=== PATIENT | female | born 1990 | race Caucasian/White ===

== ENCOUNTER 2019-12-31 07:20 | Outpatient (CLI) | payer BC, SELFPAY ==
--- NOTE | 2019-12-31 08:00 | FL_ITS ---
WS: [id number] HYSTEROGRAM PERFORMED UNDER FLUOROSCOPY HISTORY: N97.9 Female infertility, unspecified. FLUOROSCOPY TIME: .3 minutes. Cannulization of the cervix performed by Dr. Linder. Normal filling of the endometrial cavity. Rapid spillage from the RIGHT fallopian tube. More delayed spillage from the LEFT fallopian tube but it did spill. FL/FL hysterosalpingography [id number] IMPRESSION: Fallopian tubes are patent bilaterally.
[2019-12-31] MEDS: iohexol 300 mg/mL 50 mL Btl VAGINAL (08:20)
--- NOTE | 2019-12-31 09:06 | PM.ACPR ---
Procedure/Consent Procedure Narrative: RADIOLOGIC PROCEDURE DATE OF PROCEDURE: 12/31/2019 DATE OF DICTATION: 12/31/2019 TIME OF DICTATION: 09: 05 PROCEDURAL DIAGNOSIS: Female infertility PROCEDURE: Placement of hysterosalpingogram catheter PHYSICIAN: Saji Linder M.D. ANESTHESIA: None INDICATIONS: Patient is a 29-year-old female being evaluated for infertility. Presenting for HSG today. PROCEDURE: The procedure was explained to the patient and verbal consent provided. Sterile speculum was placed in the vagina and the cervix was prepped with Betadine. The cervix was grasped with a single-tooth tenaculum. Using Omnipaque dye, the HSG catheter was primed. The catheter was inserted into the cervix. The speculum was removed. Fluoroscopy was performed by the radiologist. Omnipaque dye was injected into the endometrial cavity with normal filling of the cavity. Free spillage of dye noted from both tubes. The tenaculum and catheter were removed. Patient tolerated the procedure well. Please see separate radiologist's report for final interpretation. FOLLOWUP APPOINTMENT: She is to followup at her next scheduled appointment.
== END 2019-12-31 07:21 | disposition home or self-care (01) ==
LOC: RAD 07:23
PROVIDERS: Family Provider Family Medicine; PCP Family Medicine; Visit Provider Obstetrics & Gynecology
DX: N97.9 Female infertility, unspecified (principal)
CPT/HCPCS: 12345; 74740

== ENCOUNTER 2021-05-21 17:04 | Outpatient (CLI) | payer BC, SELFPAY ==
[2021-05-25 12:36] LABS: Insulin ( Reference Lab Test) 8.1 uIU/mL
== END 2021-05-21 17:05 | disposition home or self-care (01) ==
LOC: LAB 17:08
PROVIDERS: PCP Family Medicine; Visit Provider Obstetrics & Gynecology
DX: Z01.419 Encounter for gynecological examination (general) (routine) without abnormal findings (principal)
CPT/HCPCS: 36415; 83525; 88175

== ENCOUNTER 2021-08-26 14:25 | Outpatient (CLI) | payer OTHER, SELFPAY ==
[2021-08-26 15:21] LABS: Urine Appearance Cloudy (CLEAR)
[2021-08-26 15:22] LABS: Bilirubin Urine 2+ (Negative); Blood Urine 3+ (Negative); Glucose Urine UA Norm (Normal); Ketones Urine Negative (Negative); Nitrate Urine Positive (Negative); Protein Urine 3+ (Negative); Specific Gravity, Urine 1.005 (1.005-1.030); pH Urine 7 (5-7)
[2021-08-26 15:23] LABS: Urobilinogen Urine 4 mg/dL (Negative)
[2021-08-26 15:24] LABS: Add Urine Microscopic? YES; Leukocyte Esterase Urine Negative (Negative)
[2021-08-26 15:25] LABS: Urine Color Orange (Yellow)
[2021-08-26 15:35] LABS: Add Urine Culture? Yes; Bacteria Urine 2+ /hpf; RBC Urine TOO NUMEROUS TO CNT /hpf (0-2); Squamous Epithelial Cell Urine 0-4 /hpf (0-5); WBC Urine 25-40 /hpf (0-5)
== END 2021-08-26 14:26 | disposition home or self-care (01) ==
PROVIDERS: PCP Family Medicine; Visit Provider Nurse Practitioner Family
DX: R30.0 Dysuria (principal)
CPT/HCPCS: 81001; 87077; 87086; 87186

== ENCOUNTER → 2022-06-17 15:30 | Outpatient (BNVA) | payer OTHER, SELFPAY | PROVIDERS: PCP Family Medicine; Visit Provider Obstetrics & Gynecology | DX: N92.6 Irregular menstruation, unspecified (principal) | CPT/HCPCS: 83036; 83525; 84443 ==

== ENCOUNTER → 2022-11-08 07:37 | Outpatient (BNVA) | payer BC, SELFPAY | PROVIDERS: PCP Family Medicine; Visit Provider Obstetrics & Gynecology | DX: Z31.41 Encounter for fertility testing (principal) | CPT/HCPCS: 76830 ==

== ENCOUNTER → 2023-01-03 13:54 | Outpatient (BNVA) | payer BC, SELFPAY | PROVIDERS: PCP Family Medicine; Visit Provider Obstetrics & Gynecology | DX: D25.9 Leiomyoma of uterus, unspecified (principal) | CPT/HCPCS: 76830 ==

== ENCOUNTER 2023-04-27 11:26 | Outpatient (CLI) | payer OTHER, SELFPAY ==
--- NOTE | 2023-04-27 11:45 | US_ITS ---
WS: [id number] pelv w/transvag [id number] HISTORY: Z31.81 - Encounter for male factor infertility in female ... COMPARISON: 01/03/2023 Uterus: 7.2 cm x 5.8 cm x 3.6 cm. Normal size anteverted uterus. Heterogeneous mass with shadowing in the RIGHT uterine body measures 3 .7 x 3.3 x 4.0 cm. Consistent with a fibroid and previously described. Endometrium: 1.5 cm. Mildly thickened and heterogeneous endometrium. Right ovary: 3.3 cm x 1.3 cm x 2.0 cm. Normal size ovary. Largest follicle measures 1.1 x 1.3 x 1.4 c m. There are additional smaller peripheral follicles. The number of follicles in the RIGHT ovary is e stimated at 10. Left ovary: 3.5 cm x 2.4 cm x 2.3 cm. Normal size ovary. There is a single follicle measuring 2.0 x 1 .7 x 2.3 cm. Small amount of heterogeneity associated follicle may be blood product. Only one follicl e is identified in the LEFT ovary. No free fluid in the cul-de-sac. US/ pelv w/transvag [id number] IMPRESSION: 1. Largest RIGHT ovarian follicle 1.1 x 1.3 x 1.4 cm. Number of follicles tiki mated at 10. 2. Largest LEFT ovarian follicle 2.0 x 1.7 x 2.3 cm. Number of follicles estim ated at 1. 3. Mildly thickened endometrium. 4. RIGHT uterine fibroid.
== END 2023-04-27 11:27 | disposition home or self-care (01) ==
PROVIDERS: PCP Family Medicine; Visit Provider Obstetrics & Gynecology
DX: D25.9 Leiomyoma of uterus, unspecified (principal); R93.89 Abnormal findings on diagnostic imaging of other specified body structures; N97.8 Female infertility of other origin; Z31.81 Encounter for male factor infertility in female patient
CPT/HCPCS: 76830; 76856

== ENCOUNTER → 2023-11-21 09:00 | Outpatient (BNVA) | payer OTHER, SELFPAY | PROVIDERS: PCP Family Medicine; Visit Provider Nurse Practitioner Women's Health | DX: Z31.81 Encounter for male factor infertility in female patient (principal); N97.8 Female infertility of other origin | CPT/HCPCS: 80053; 82306; 83036; 84144; 84146; 84403; 84443; 84702; 85025; 86592; 86803; 86850; 86900; 87806 ==

== ENCOUNTER 2023-11-24 12:09 | Outpatient (CLI) | payer OTHER, SELFPAY ==
--- NOTE | 2023-11-24 12:33 | FL_ITS ---
WS: [id number] Hysterosalpingogram, 11/24/2023 Clinical Data: Z31.81 - Encounter for male factor infertility in female ... Comparison: Hysterosalpingogram, 12/31/2019 Findings: Dr. Bobby injected the contrast material. There is a large amount of contrast within the pelvic cavity . The uterine outline was normal. There was fallopian tube spill. Contrast material also appeared wit hin the ovarian veins. Impression: Negative hysterosalpingogram with probable bilateral fallopian tube spill.
== END 2023-11-24 12:10 | disposition home or self-care (01) ==
LOC: RAD 12:10
PROVIDERS: PCP Family Medicine; Visit Provider Obstetrics & Gynecology
DX: Z31.81 Encounter for male factor infertility in female patient (principal); N97.8 Female infertility of other origin
CPT/HCPCS: 74740

== ENCOUNTER 2023-12-19 15:27 | Outpatient (CLI) | payer OTHER, SELFPAY | END 2023-12-19 15:28 | disposition home or self-care (01) | LOC: LAB 15:29 | PROVIDERS: PCP Family Medicine; Visit Provider Nurse Practitioner Women's Health | DX: Z32.01 Encounter for pregnancy test, result positive (principal) | CPT/HCPCS: 36415; 84702 ==

== ENCOUNTER → 2023-12-20 08:32 | Outpatient (BNVA) | payer OTHER, SELFPAY | PROVIDERS: PCP Family Medicine; Visit Provider Nurse Practitioner Women's Health | DX: Z01.419 Encounter for gynecological examination (general) (routine) without abnormal findings (principal) | CPT/HCPCS: 81025 ==

== ENCOUNTER → 2023-12-21 14:03 | Outpatient (BNVA) | payer OTHER, SELFPAY | PROVIDERS: PCP Family Medicine; Visit Provider Obstetrics & Gynecology | DX: Z32.01 Encounter for pregnancy test, result positive (principal) | CPT/HCPCS: 84702 ==

== ENCOUNTER → 2024-01-19 12:43 | Outpatient (BNVA) | payer OTHER, SELFPAY | PROVIDERS: PCP Family Medicine; Visit Provider Obstetrics & Gynecology | DX: Z36.87 Encounter for antenatal screening for uncertain dates (principal) | CPT/HCPCS: 76801 ==

== ENCOUNTER 2024-08-20 14:58 | Outpatient (CLI) | payer OTHER, SELFPAY ==
[2024-08-20 15:10] VITALS: BP 121/75; PULSE 109
[2024-08-20 15:13] VITALS: BMI 45.2
[2024-08-20 15:26] VITALS: BP 128/66; PULSE 86
[2024-08-20 15:40] VITALS: BP 131/75; PULSE 81
[2024-08-20 16:05] VITALS: BP 131/75; PULSE 81
== END 2024-08-20 16:05 | disposition home or self-care (01) ==
LOC: OPOB 15:00 → OBGYN 15:01
PROVIDERS: PCP Family Medicine; Visit Provider Family Medicine
DX: O36.8190 Decreased fetal movements, unspecified trimester, not applicable or unspecified (principal); Z3A.00 Weeks of gestation of pregnancy not specified
CPT/HCPCS: 59025; 99211